=== PATIENT | female | born 1975 | race Caucasian/White ===

== ENCOUNTER 2018-01-21 11:05 | Day surgery (SDC) | payer OTHER ==
[~2018-01-21 11:05] MED LIST: CEFAZOLIN 1 GM INJ; NALOXONE (0.4 MG/ML) INJ IV
[2018-01-21 13:01] LABS: ADD MAN DIFF? NO
[2018-01-21 13:05] LABS: WHITE BLOOD COUNT 9.5 10^3/ul (4.8-10.8)
[2018-01-21 13:05] LABS: BASOPHIL # 0.1 10^3/ul (0.0-0.1); BASOPHILS % 0.8 % (0.0-2.0); EOSINOPHILS # 0.2 10^3/ul (0.0-0.5); EOSINOPHILS % 2.3 % (0.0-7.0); LYMPHOCYTES # 2.1 10^3/ul (0.8-2.9); LYMPHOCYTES % 22.2 % (15.0-51.0); MEAN CORPUSCULAR HEMOGLOBIN 23.5 pg (29.0-33.0); MEAN CORPUSCULAR VOLUME 75.8 fl (82.0-101.0); MEAN PLATELET VOLUME 10.2 fl (7.4-10.4); MONOCYTE # 0.6 10^3/ul (0.3-0.9); MONOCYTES % 5.9 % (0.0-11.0); NEUTROPHIL # 6.5 10^3/ul (1.6-7.5); NEUTROPHILS % 68.3 % (39.0-77.0); PLATELET COUNT 402 10^3/UL (140-415); RED BLOOD COUNT 4.09 10^6/ul (4.20-5.40); RED CELL DISTRIBUTION WIDTH 16.4 % (11.5-14.5)
[2018-01-21 13:08] LABS: HOLD TRANSMISSIONS 1
[2018-01-21 13:13] LABS: HEMOGLOBIN 9.6 g/dl (12.0-16.0)
[2018-01-21 13:21] LABS: ALANINE AMINOTRANSFERASE 33 IU/L (13-69); ALBUMIN 3.5 g/dl (3.3-4.9); ALBUMIN/GLOBULIN RATIO 0.85; ALKALINE PHOSPHATASE 118 IU/L (42-121); ANION GAP 12 (8-16); ASPARTATE AMINO TRANSFERASE 27 IU/L (15-46); BILIRUBIN,INDIRECT 0.3 mg/dl (0-1.1); BILIRUBIN,TOTAL 0.3 mg/dl (0.2-1.3); CARBON DIOXIDE 20 mmol/L (21-31); CHLORIDE 112 mmol/L (97-110); GLUCOSE 87 mg/dl (70-220); TOTAL PROTEIN 7.6 g/dl (6.1-8.1)
[2018-01-21 13:22] LABS: BLOOD UREA NITROGEN 15 mg/dl (7-20); CALCIUM 9.1 mg/dl (8.4-10.2); POTASSIUM 4.3 mmol/L (3.5-5.1); SODIUM 140 mmol/L (135-144)
[2018-01-21 13:33] LABS: INR 0.96; PARTIAL THROMBOPLASTIN TIME 30.6 Sec (25.0-35.0); PROTIME 12.9 Sec (11.9-14.9)
[2018-01-21] MEDS ORDERED: MIDAZOLAM 1 MG/ML 2 ML INJ (15:22)
[2018-01-21] MEDS ORDERED: PROPOFOL 20 ML (15:22)
[2018-01-21] MEDS ORDERED: GLYCOPYRROLATE 0.4 MG INJ (15:22)
[2018-01-21] MEDS ORDERED: LIDOCAINE 2% (SDV) 5 ML INJ (15:22)
[2018-01-21] MEDS ORDERED: NEOSTIGMINE 3 MG/3 ML SYRINGE (15:22)
[2018-01-21] MEDS ORDERED: ROCURONIUM 50 MG INJ (15:22)
[2018-01-21] MEDS ORDERED: FENTAnyl 50 MCG/ML VIAL (15:22)
[2018-01-21] MEDS ORDERED: ONDANSETRON 4 MG INJ (15:23)
[2018-01-21] MEDS ORDERED: DEXAMETHASONE 4 MG/ML 1 ML INJ ×2 (15:23→17:25)
[2018-01-21] MEDS ORDERED: SUCCINYLCHOLINE CHLORIDE 100 MG/5 ML SYG IV (15:24)
[2018-01-21] MEDS: LIDOCAINE 1%/EPI 30 ML INJ (15:58)
[2018-01-21] MEDS: BUPIVACAINE 0.25%/EPI (SDV) 30 ML INJ (15:59)
[2018-01-21] MEDS ORDERED: HYDROCODONE/APAP (5/325) TAB PO (16:00)
[2018-01-21] MEDS ORDERED: ONDANSETRON 4 MG INJ IV (16:00)
[2018-01-21] MEDS ORDERED: morphine 2 MG INJ IV (16:00)
[2018-01-21] MEDS ORDERED: SUGAMMADEX SODIUM 200 MG/2 ML VIAL IV (16:46)
[2018-01-21] MEDS ORDERED: HYDROmorphONE 1 MG/5 ML IV SYRINGE IV (17:13)
[2018-01-21] MEDS: HYDROmorphONE 1 MG/5 ML IV SYRINGE IV ×2 (17:23→17:29)
[2018-01-21] MEDS: ONDANSETRON 4 MG INJ IV (17:28)
[2018-01-21] MEDS: MEPERIDINE 25 MG INJ IV (17:29)
[2018-01-21] MEDS ORDERED: METOCLOPRAMIDE 10 MG INJ IV (17:30)
[2018-01-21] MEDS ORDERED: hydrALAzine 20 MG INJ IV (17:30)
[2018-01-21] MEDS ORDERED: FENTAnyl 50 MCG/ML VIAL IV ×2 (17:30)
[2018-01-21] MEDS ORDERED: LABETALOL HCL 20MG INJ IV (17:30)
[2018-01-21] MEDS ORDERED: OXYCODONE/ACETAMINOPHEN (5/325) TAB PO ×2 (17:30)
[2018-01-21] MEDS ORDERED: ALBUTEROL 0.083% (NEB) 2.5 MG/3 ML AMP HHN (17:30)
[2018-01-21] MEDS ORDERED: ROPIVACAINE 0.5 % 30 ML VIAL (18:04)
== END 2018-01-21 18:40 | disposition home or self-care (01) ==
LOC: SDS 11:05
DX: L72.0 Epidermal cyst (principal)
CPT/HCPCS: 11426; 80053; 85025; 85610; 85730; 88307; 93005